=== PATIENT | male | born 1995 | race African-American/Black ===

== ENCOUNTER 2017-01-08 08:10 | Emergency (ER) | payer OTHER ==
[2017-01-08 08:24] VITALS: RESP 18; O2SAT 99
[2017-01-08] MEDS ORDERED: Bacitracin 500 Units/gm Oint Foilpak UD TOP ONE (09:12)
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
[2017-01-08] MEDS ORDERED: Bacitracin 500 Units/gm Oint Foilpak UD ONE (09:18)
--- NOTE | 2017-01-08 09:33 | RAD ---
PROCEDURE: Right Knee Radiographs. HISTORY: COMPARISON: None available. FINDINGS: BONES: No acute displaced fracture. JOINTS: No dislocation. JOINT EFFUSION: No significant joint effusion. OTHER FINDINGS: None. IMPRESSION: No acute displaced fracture, dislocation, or significant joint effusion identified. If symptoms persist, or if there is continued clinical concern, x-ray follow-up in 7-10 days should be considered.
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
[2017-01-08 11:20] VITALS: BP 113/72; PULSE 71; TEMP 97.9
== END 2017-01-08 11:28 | disposition home or self-care (01) ==
LOC: C.ER 08:10
DX: S80.01XA Contusion of right knee, initial encounter (principal); S00.83XA Contusion of other part of head, initial encounter; S40.011A Contusion of right shoulder, initial encounter; V09.3XXA Pedestrian injured in unspecified traffic accident, initial encounter